=== PATIENT | female | born 1970 | race Hispanic/Latino ===

== ENCOUNTER → 2018-05-18 | Outpatient (CLI) | payer BC ==
[~2018-05-18] MED LIST: CALCIUM PO; FISH OIL PO; LISI2.5T2 PO
== END | disposition home or self-care (01) ==
LOC: RAH 12-01 15:38
PROVIDERS: ATTEND Obstetrics & Gynecology
DX: Z12.31 Encounter for screening mammogram for malignant neoplasm of breast (principal)
CPT/HCPCS: 77067

== ENCOUNTER → 2019-05-22 | Outpatient (CLI) | payer BC | END | disposition home or self-care (01) | LOC: RAH 11:08 | PROVIDERS: ATTEND Internal Medicine | DX: Z12.31 Encounter for screening mammogram for malignant neoplasm of breast (principal) | CPT/HCPCS: 77067 ==

== ENCOUNTER → 2020-10-08 | Outpatient (CLI) | payer BC | END | disposition home or self-care (01) | LOC: OIH 10:36 | PROVIDERS: ATTEND Internal Medicine | DX: M54.2 Cervicalgia (principal) | CPT/HCPCS: 72040 ==